=== PATIENT | female | born 2000 | race Two or more races ===

== ENCOUNTER 2025-01-07 03:38 | Inpatient (IN) | payer OTHER ==
[~2025-01-07] VITALS: Ht 154.9 cm; Wt 53.5 kg
[2025-01-07] MEDS ORDERED: 0.9 % SODIUM CHLORIDE 1,000 ML IV STA (05:54)
[2025-01-07] MEDS ORDERED: KETOROLAC TROMETHAMINE 30 MG VIAL IV STA (05:54)
[2025-01-07] MEDS ORDERED: OxyCODONE HCL 5 MG TABLET (ROXICODONE) PO STA (05:55)
[2025-01-07 07:49] LABS: BASO % 0.2 % (0.1-1.2); EOS # 0.03 (0.04-0.54); EOS % 0.2 % (0.7-7.0); LYMPH # 2.50 (1.18-3.74); LYMPH % 13.3 % (19.3-53.1); MEAN PLATELET VOLUME 11.10 fl (9.4-12.4); MONO # 1.75 (0.24-0.82); MONO % 9.3 % (4.7-12.5); NEUT # 14.40 (1.56-6.13); NEUT % 76.4 % (34.0-71.1); RED CELL DISTRIBUTION WIDTH 12.3 % (11.6-14.4)
[2025-01-07 08:41] LABS: URINE APPEARANCE Clear; URINE BILIRRUBIN Negative (NEGATIVE); URINE BLOOD Small; URINE COLOR Yellow; URINE GLUCOSE Negative (NEGATIVE); URINE KETONE 15 (NEGATIVE); URINE LEUKOCYTE Small; URINE NITRATE Negative; URINE PROTEIN 30 (NEGATIVE); URINE UROBILINOGEN 1.0 E.U./dl
[2025-01-07 09:04] LABS: URINE WBC 21-30 /hpf
[2025-01-07 09:06] LABS: URINE BACTERIA MODERATE; URINE MUCUS SCANT; URINE YEAST FEW /hpf
[2025-01-07 09:19] LABS: ALT/SGPT 31.0 U/L (12-78); AST/SGOT 28.0 U/L (15-37); BILIRUBIN TOTAL 0.37 mg/dL (0.3-1.2); BUN CREA RATIO 13.0 (7.0-25.0); CREATININE SERUM 0.93 mg/dL (0.55-1.02); GFR 74.71; GLOBULINA 3.9 G/DL (2.4-3.5); GLUCOSE FASTING 104.0 mg/dL (65-100); OSMOLALITY SERUM 281.0 MOSM/KG (275-295)
[2025-01-07] MEDS ORDERED: CEFTRIAXONE SODIUM 2,000 MG VIAL IV ONE (11:15)
[2025-01-07] MEDS ORDERED: MORPHINE SULFATE 2 MG/ML CARTRIDGE IV ONE (11:45)
[2025-01-07] MEDS ORDERED: ACETAMINOPHEN 500 MG GEL..CAP PO ONE ×2 (11:45→18:30)
[2025-01-07] MEDS ORDERED: ONDANSETRON HCL 2 MG/ML VIAL IV ONE (12:30)
[2025-01-07] MEDS ORDERED: FAMOTIDINE/PF 20 MG in 0.9 % SODIUM CHLORIDE 8 ML IV PUSH SCH (18:27)
[2025-01-07] MEDS ORDERED: KETOROLAC TROMETHAMINE 30 MG VIAL IU ONE (18:30)
[2025-01-07] MEDS ORDERED: ACETAMINOPHEN 500 MG GEL..CAP PO PRN (18:30)
[2025-01-07] MEDS ORDERED: ONDANSETRON HCL 4 MG in 0.9 % SODIUM CHLORIDE 50 ML IV PRN (18:30)
[2025-01-07] MEDS ORDERED: 0.9 % SODIUM CHLORIDE 1,000 ML IV SCH (18:30)
[2025-01-07 20:41] VITALS: BP 90/57; O2SAT 98
[2025-01-08 03:01] VITALS: BP 88/58; O2SAT 98
[2025-01-08 06:38] LABS: INR 1.02
[2025-01-08 08:39] VITALS: BP 107/63
[2025-01-08] MEDS ORDERED: CEFTRIAXONE SODIUM 2,000 MG in 0.9 % SODIUM CHLORIDE 100 ML IV SCH (09:00)
[2025-01-08 17:48] VITALS: BP 110/47; O2SAT 99
[2025-01-09 01:48] VITALS: BP 95/64; O2SAT 98
[2025-01-09 06:22] LABS: BASO % 0.6 % (0.1-1.2); EOS # 0.14 (0.04-0.54); EOS % 2.2 % (0.7-7.0); LYMPH # 2.27 (1.18-3.74); LYMPH % 35.5 % (19.3-53.1); MEAN PLATELET VOLUME 10.60 fl (9.4-12.4); MONO # 0.86 (0.24-0.82); NEUT # 3.06 (1.56-6.13); NEUT % 47.9 % (34.0-71.1); RED CELL DISTRIBUTION WIDTH 13.1 % (11.6-14.4)
[2025-01-09 06:28] LABS: MONO % 13.5 % (4.7-12.5)
[2025-01-09 09:07] VITALS: BP 113/77; O2SAT 96
[2025-01-09 20:11] VITALS: BP 115/63; O2SAT 98
[2025-01-10 01:16] VITALS: BP 105/75; O2SAT 99
[2025-01-10 08:09] VITALS: BP 113/75
[2025-01-12 21:07] LABS: chla t Negative (Negative); neiss Negative (Negative)
== END 2025-01-10 12:09 | disposition home or self-care (01) | DRG 872 ==
LOC: ER 03:38 → MEDJ 18:39
PROVIDERS: General Practice; Internal Medicine Infectious Disease; ADMIT Internal Medicine; ATTEND Internal Medicine
PROC: BW21YZZ Computerized Tomography (CT Scan) of Abdomen and Pelvis using Other Contrast (ICD-10-PCS; principal; 2025-01-07)
DX: A41.9 Sepsis, unspecified organism (principal); N12 Tubulo-interstitial nephritis, not specified as acute or chronic; R30.0 Dysuria; R65.10 Systemic inflammatory response syndrome (SIRS) of non-infectious origin without acute organ dysfunction